=== PATIENT | male | born 1980 ===

== ENCOUNTER 2021-02-09 16:07 | Outpatient (REF) | payer MEDICAID, SELFPAY ==
[2021-02-11 09:38] LABS: HIV-1/2 Ag & Ab Screen Negative (Negative)
[2021-02-13 11:47] LABS: Hepatitis C Ab w Rflx HCV PCR Negative (Negative)
[2021-02-13 12:38] LABS: Syphilis Serology (RPR) Negative (Negative)
== END 2021-02-09 16:08 | disposition home or self-care (01) ==
LOC: NCHCN 16:07
PROVIDERS: Visit Provider Nurse Practitioner Family
DX: Z11.3 Encounter for screening for infections with a predominantly sexual mode of transmission (principal); Z11.59 Encounter for screening for other viral diseases
CPT/HCPCS: 86803; 87389; 86592